=== PATIENT | female | born 2000 | race Hispanic/Latino ===

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

== ENCOUNTER → 2023-09-02 | Outpatient (CLI) | payer MEDICAID | END | disposition home or self-care (01) | LOC: OIH 11:35 | PROVIDERS: ATTEND Internal Medicine | DX: M47.814 Spondylosis without myelopathy or radiculopathy, thoracic region (principal); M54.6 Pain in thoracic spine | CPT/HCPCS: 72070 ==

== ENCOUNTER 2024-07-23 19:01 | Emergency (ER) | payer MEDICAID ==
[~2024-07-23] VITALS: Ht 157.5 cm; Wt 74.8 kg
--- NOTE | 2024-07-23 19:24 | ERN ---
ED Note History of Present Illness Stated Complaint: URINARY RETENTION, N/V, CONSTIPATION Chief Complaint: Multiple Complaints Time Seen by MD: 19:03 Time Seen by Midlevel: 19:03 Dictation: Patient is a 23-year-old female with a history of bipolar, autism, mountain delayed who presents to the emergency department with complaints of a nausea, nonbloody vomiting, constipation, chills, burning urination , generalized abdominal pain onset six days ago. Mother denies any fevers. Allergies: Coded Allergies: amoxicillin (Unverified Allergy, Unknown, 07/23/24) Past Medical History Past Medical History: UTI Additional Past Medical Hx: MR Surgical History: Tonsillectomy History: Not Applicable RN Note Reviewed/Agreed w/PFSH: Yes Review of System Dictation Constitutional: Negative for fever, and weight loss positive for chills Eyes: Negative for injury, pain,redness, and discharge ENT: Negative for injury,pain or swelling Cardiovascular: Negative for chest pain, palpitations, and edema Respiratory: Negative for shortness of breath, cough, and wheezing, Abdomen/GI: Negative for diarrhea. Positive for abdominal pain, nausea, vomiting, constipation Back: Negative for injury and pain : Negative for injury, bleeding and discharge positive for urinary discomfort MS/Extremity: Negative for injury and deformity Skin: Negative for rash, and discoloration Neuro: Negative for headache, weakness, numbness, tingling, and seizure Psych: Negative for suicide ideation, homicidal ideation, and hallucinations Initial Vital Sign VS Vital Signs Date Time Temp Pulse Resp B/P (MAP) Pulse Ox O2 Delivery O2 Flow Rate FiO2 07/23/24 19:03 97.7 90 20 117/79 97 Room Air 07/23/24 20:16 0 21 Physical Exam Dictation Vital Signs reviewed General Appearance: Alert, oriented x 3, no acute distress, well developed, nourished. Head and Face: non-traumatic. Eyes: PERRL, pink conjunctivas, eyelid no trauma, anterior chamber with arcus senilis. Ears: Pinnas intact and no signs of trauma or erythema ear canals clear and no discharge TM no erythema Nose: No discharge, no bleeding. Oropharynx: Mouth normal, tongue pink. pharynx clear,no erythema, tonsils no exudates, no abscesses noted, mucous membrane moist Neck: Supple, non-tender, no thyromegaly, no masses, no JVD, no bruits Breast:Deferred Chest:No tenderness, no crepitus, no paradoxical movement, no retractions Lungs:Clear, well-ventilated, symmetric, no rales, no wheezing, no rhonchi, no stridor, good breath sounds bilaterally Heart: Regular rate, regular rhythm, no murmur, no gallops Vascular: no peripheral edema, Abdomen: Soft, positive bowel sounds, nondistended, no guarding, nontender, no rebound, no masses no hepatomegaly, no splenomegaly, no Malagon's sign, no hernias. Rectal: Deferred Genital: Deferred Neurological: Normal speech, motor function intact, sensory function intact Musculoskeletal: Neck nontender, full range of motion, back nontender, full range of motion, Extremities: nontender, full range of motion Skin: Color pink, dry, no turgor, no rash, no lacerations, no abrasions, no contusions. Lymphatic: Deferred Results (Laboratory/Radiology) Laboratory/Radiology Laboratory Tests Test 07/23/24 19:48 07/23/24 19:54 White Blood Count 9.7 K/uL (4.8-10.8) Red Blood Count 4.43 MIL/uL (4.00-5.50) Hemoglobin 13.3 g/dL (12.0-16.0) Hematocrit 37.1 % (36-48) Mean Corpuscular Volume 83.7 fL (80-100) Mean Corpuscular Hemoglobin 30.0 pg (27.0-33.0) Mean Corpuscular Hemoglobin Concent 35.8 g/dL (32.0-36.0) Red Cell Distribution Width 11.8 % (11.0-15.5) Platelet Count 246 K/uL (130-400) Mean Platelet Volume 9.7 fL (7.5-10.5) Immature Granulocyte % (Auto) 0.4 % (0-1) Neutrophils (%) (Auto) 66.5 % (40.0-77.0) Lymphocytes (%) (Auto) 23.5 % (21.0-51.0) Monocytes (%) (Auto) 8.0 % (3.0-13.0) Eosinophils (%) (Auto) 1.2 % (0.0-8.0) Basophils (%) (Auto) 0.4 % (0.0-5.0) Neutrophils # (Auto) 6.4 K/uL (1.8-7.7) Lymphocytes # (Auto) 2.3 K/uL (1.0-4.8) Monocytes # (Auto) 0.8 K/uL (0.1-1.0) Eosinophils # (Auto) 0.12 K/uL (0.00-0.70) Basophils # (Auto) 0.04 K/uL (0.00-0.20) Absolute Immature Granulocyte (auto 0.04 K/uL (0-1) Nucleated Red Blood Cells 0.0 % (0.0-0.19) Sodium Level 139 mmol/L (136-145) Potassium Level 3.7 mmol/L (3.5-5.1) Chloride Level 98 mmol/L (101-111) L Carbon Dioxide Level 30 mmol/L (21-32) Blood Urea Nitrogen 13 mg/dL (7-18) Creatinine 0.9 mg/dL (0.5-1.0) Glomerular Filtration Rate Calc 93 mL/min (>90) Random Glucose 88 mg/dL (70-105) Total Calcium 9.7 mg/dL (8.5-10.1) Magnesium Level 2.00 mg/dL (1.80-2.40) Total Bilirubin 0.6 mg/dL (0.2-1.0) Direct Bilirubin 0.2 mg/dL (0.0-0.3) Aspartate Amino Transf (AST/SGOT) 141 U/L (10-37) H Alanine Aminotransferase (ALT/SGPT) 236 U/L (12-78) H Alkaline Phosphatase 58 U/L (50-136) Total Protein 8.1 g/dL (6.0-8.3) Albumin 4.2 g/dL (3.5-5.0) Lipase 49 U/L (16-77) Serum Test, Qualitative NEGATIVE (NEGATIVE) Urine Color YELLOW (YELLOW) Urine Appearance CLEAR (CLEAR) Urine pH 5.5 (5.0-8.0) Urine Specific [place] 1.019 (1.001-1.031) Urine Protein 30 mg/dL (NEGATIVE) H Urine Glucose (UA) NEGATIVE mg/dL (NEGATIVE) Urine Ketones 100 mg/dL (NEGATIVE) H Urine Occult Blood NEGATIVE (NEGATIVE) Urine Nitrate NEGATIVE (NEGATIVE) Urine Bilirubin NEGATIVE mg/dL (NEGATIVE) Urine Urobilinogen 4.0 mg/dL (0.2-1.0) H Urine Leukocyte Esterase NEGATIVE Cyndie/uL Urine RBC 0-1 /HPF (0-1) Urine WBC 2-5 /HPF (0-1) H Urine Squamous Epithelial Cells FEW /HPF (0-2) Urine Bacteria RARE /HPF (None Seen) Urine Other Casts 1 /LPF (None Seen) REASON: RUq Abdominal Pain, n,v, ORDERING PHYSICIAN: JUAN C COBOS PROCEDURE: ABD PEL W - CT ABDOMEN/PELVIS W/CONTRAST CT ABDOMEN/PELVIS W/CONTRAST HISTORY: RUq Abdominal Pain, n,v, TECHNIQUE: CT ABDOMEN/PELVIS W/CONTRAST Omnipaque contrast was used. Oral contrast was not given. Coronal and sagittal reformats were obtained. CT was performed with one or more of the following dose reduction techniques: Automated exposure control, adjustment of the mA and/or kV according to the patient's size, or use of the iterative reconstruction technique. Comparison: None. FINDINGS: No pulmonary consolidation or pleural effusion is seen. There is hepatic steatosis. No calcified gallstone is seen. The spleen, pancreas, and adrenal glands are within normal limits. No hydronephrosis. The urinary bladder is partially distended. Reproductive organs are grossly within normal limits for patient's age. Small amount of free pelvic fluid, nonspecific for patient's age. No bowel obstruction is seen. Normal appendix. Visualized aorta is normal in caliber. No acute osseous findings. IMPRESSION: 1. Small amount of free pelvic fluid, nonspecific for patient's age. 2. No bowel obstruction is seen. Normal appendix. REASON: ABD PAIN, ELEVATED LFTS ORDERING PHYSICIAN: JUAN C COBOS RADIATION PROTECTION TECHNICIAN PROCEDURE: ABDRUQLTD - US ABDOMINAL RUQ\LTD US ABDOMINAL RUQ\E\LTD HISTORY: ABD PAIN, ELEVATED LFTS TECHNIQUE: US ABDOMINAL RUQ\E\LTD. FINDINGS: LIVER: Diffuse increased echogenicity of the liver is seen suggestive of hepatic parenchymal disease, such as hepatic steatosis. Vertebral measures 19 cm. GALLBLADDER: No gallstone or wall thickening is seen. CBD: Measures up to 0.3cm. PANCREAS: The visualized pancreas appears within normal limits. The pancreatic was not well seen due to overlying bowel gas. RIGHT KIDNEY: measures 9.9cm in length. No hydronephrosis or calculi. Study is degraded due to patient's large body habitus. IMPRESSION: Hepatomegaly with hepatic steatosis. REASON: constipation ORDERING PHYSICIAN: JUAN C COBOS PROCEDURE: ABD 1VW - ABD 1VW ABD 1VW HISTORY: constipation TECHNIQUE: ABD 1VW. COMPARISON: None. FINDINGS/IMPRESSION: Nonspecific bowel gas pattern is seen. Prominent fecal material in the colon suggesting mild constipation. No definite evidence of free abdominal air. No acute osseous injury is identified. Labs Reviewed?: Yes ED Course ED Course Orders Procedure Category Date Status Time Cbc With Differential LAB 07/23/24 Complete 19:18 Urinalysis Profile LAB 07/23/24 Complete 19:18 0.9%Nacl 1000ml (Ns PHA 07/23/24 Complete 1000ml) 19:30 Ondansetron 4mg Inj PHA 07/23/24 Complete (Zofran 4mg Inj) 19:30 Lipase LAB 07/23/24 Complete 19:18 Basic Metabolic Panel LAB 07/23/24 Complete 19:18 Magnesium LAB 07/23/24 Complete 19:18 Hepatic Function Panel LAB 07/23/24 Complete 19:18 Testing, LAB 07/23/24 Complete Serum Hcg 19:18 Abd 1vw RAD 07/23/24 Resulted 19:18 Acetaminophen 500mg PHA 07/23/24 Complete Tab (Tylenol 500mg T 19:30 Bladder Scan CPOE 07/23/24 Transmitted 19:18 Us Abdominal Ruq\Ltd US 07/23/24 Resulted 20:25 Ondansetron 4mg Inj PHA 07/23/24 Complete (Zofran 4mg Inj) 21:30 Ct Abdomen/Pelvis CT 07/23/24 Resulted W/Contrast 21:15 Morphine 4mg Syg PHA 07/23/24 Complete (Morphine 4mg Syg) 21:30 Iohexol (Omnipaque) PHA 07/23/24 Complete 21:29 Iohexol (Omnipaque) PHA 07/23/24 Complete 21:42 Current Medications Medications (Trade) Dose Ordered Sig/Rosie Route PRN Reason Start Time Stop Time Status Last Admin Dose Admin Acetaminophen (TYLenol 500MG TAB) 1,000 mg ONCE ONCE PO 07/23/24 19:30 07/23/24 19:31 DC 07/23/24 20:05 Iohexol (Omnipaque) 50 ml STK-MED ONCE IV 07/23/24 21:29 07/23/24 21:29 DC Iohexol (Omnipaque) 50 ml STK-MED ONCE IV 07/23/24 21:42 07/23/24 21:42 DC Morphine Sulfate (morPHINE 4MG SYG) 4 mg ONCE ONCE IVP 07/23/24 21:30 07/23/24 21:31 DC 07/23/24 21:33 Ondansetron HCl (zoFRAN 4MG INJ) 4 mg ONCE ONCE IVP 07/23/24 19:30 07/23/24 19:31 DC 07/23/24 20:04 Ondansetron HCl (zoFRAN 4MG INJ) 4 mg ONCE ONCE IVP 07/23/24 21:30 07/23/24 21:31 DC 07/23/24 21:33 Sodium Chloride 1,000 ml @ 0 mls/hr ONCE ONCE IV 07/23/24 19:30 07/23/24 19:31 DC 07/23/24 20:04 Vital Signs Date Time Temp Pulse Resp B/P (MAP) Pulse Ox O2 Delivery O2 Flow Rate FiO2 07/23/24 20:16 98.8 94 18 125/80 98 Room Air* 0 21 07/23/24 19:03 97.7 90 20 117/79 97 Room Air Medical Decision Making MDM Patient is a 23-year-old female with a history of bipolar, autism, mountain delayed who presents to the emergency department with complaints of a nausea, nonbloody vomiting, constipation, chills, burning urination , generalized abdominal pain onset six days ago. Mother denies any fevers CBC showed no leukocytosis, no anemia, chemistry showed no electrolyte imbalance, normal renal function, elevated liver enzymes. Ultrasound was obtained did not show any gallstones but hepatic steatosis. Urinalysis unremar kable. CT abdomen showed no acute findings. Small amount of free fluid in pelvis. Labs and imaging discussed with the patient and patient's family who agreed follow up with primary doctor. Patient has an appointment on Friday. Vital signs stable during ER. Case discussed with Dr. Sanchez who agrees the patient can be discharged Differential diagnosis: Dehydration, UTI, pyelonephritis, constipation, gastroenteritis Need for hospitalization: Patient does not meet criteria for hospitalization. There are no social concerns with this patient. DX & DISP Disposition: Discharge Departure Impression: Primary Impression: Constipation Additional Impressions: Nausea and vomiting, Transaminitis, Abdominal pain Condition: Stable Scripts Lactulose (Lactulose) 10 Gram/15 Ml Solution 30 ML PO DAILY for constipation, #900 ML 0 Refills Prov: COBOS,JUAN C ERNST 07/23/24 Ondansetron (Ondansetron Odt) 4 Mg Tab.rapdis 4 MG PO Q6HPRN PRN for nausea, #16 TAB 0 Refills Prov: DANISH COBOSCHRISTINE ERNST 07/23/24 Additional Instructions: Please follow up with primary doctor in 1-2 days. If symptoms worsen please return to ER. Continue staying hydration at home. Take medications as prescribed. FOLLOW-UP WITH PRIMARY CARE PROVIDER IN 1 TO 2 DAYS. TAKE MEDICATIONS DIRECTED HERE IN THE EMERGENCY ROOM. OKAY TO CONTINUE HOME MEDICATIONS UNLESS OTHERWISE DISCUSSED DURING YOUR VISIT IN THE EMERGENCY ROOM TODAY. RETURN TO YOUR NEAREST EMERGENCY ROOM IF SYMPTOMS WORSEN OR IF THERE IS NO IMPROVEMENT. CALL 911 IF YOU NEED IMMEDIATE ASSISTANCE. TAKE TYLENOL OR MOTRIN [id number] NEEDED AND IF NO CONTRAINDICATIONS ARE PRESENT. INCREASE ORAL HYDRATION. A WOUND CULTURE OR URINE CULTURE WAS ORDERED HERE IN THE EM ERGENCY ROOM DEPARTMENT PLEASE FOLLOW-UP WITH PRIMARY CARE PROVIDER AND ADVISE THEM TO GET REPEAT PORTS FROM OUR FACILITY. IF YOU HAD ANY BARTOLO WRAP/SPLINTS THAT WERE APPLIED HERE, PLEASE DO NOT REMOVE THEM UNTIL YOU SEE YOUR PRIMARY CARE OR SPECIALTY. Referrals: SELF,REFERRAL (PCP) Time of Disposition: 22:19 I have reviewed the case, and I agree with, Diagnosis and Plan DANISH COBOSCHRISTINE ERNST Jul 23, 2024 19:24
[2024-07-23 19:56] LABS: BASOPHILS # (AUTO) 0.04 K/uL (0.00-0.20); BASOPHILS % (AUTO) 0.4 % (0.0-5.0); EOSINOPHILS # (AUTO) 0.12 K/uL (0.00-0.70); EOSINOPHILS % (AUTO) 1.2 % (0.0-8.0); HEMATOCRIT 37.1 % (36-48); IMMATURE GRANULOCYTE ABSOLUTE 0.04 K/uL (0-1); LYMPHOCYTES # (AUTO) 2.3 K/uL (1.0-4.8); LYMPHOCYTES % (AUTO) 23.5 % (21.0-51.0); MEAN CORPUSCULAR HGB CONC 35.8 g/dL (32.0-36.0); MEAN CORPUSCULAR VOLUME 83.7 fL (80-100); MONOCYTES # (AUTO) 0.8 K/uL (0.1-1.0); NEUTROPHILS # (AUTO) 6.4 K/uL (1.8-7.7); NEUTROPHILS % (AUTO) 66.5 % (40.0-77.0); PLATELET COUNT (AUTO) 246 K/uL (130-400); RED BLOOD CELL COUNT(AUTO) 4.43 MIL/uL (4.00-5.50); RED CELL DISTRIBUTION WIDTH 11.8 % (11.0-15.5); WHITE BLOOD COUNT (AUTO) 9.7 K/uL (4.8-10.8)
--- NOTE | 2024-07-23 20:00 | NUR ---
BLADDER SCANNER READING 0CC, PATIENT HAD PREVIOSLY VOIDED
[2024-07-23] MEDS: ondanSETRON 4MG INJ IVP ONE ×2 (20:04→21:33)
[2024-07-23] MEDS: 0.9%NACL 1000ML 1,000 ML IV ONE (20:04)
[2024-07-23] MEDS: acetaMINOPHEN 500 MG TABLET PO ONE (20:05)
[2024-07-23 20:10] LABS: CREATININE 0.9 mg/dL (0.5-1.0); POTASSIUM 3.7 mmol/L (3.5-5.1)
[2024-07-23 20:13] LABS: ALBUMIN 4.2 g/dL (3.5-5.0); BILIRUBIN,DIRECT 0.2 mg/dL (0.0-0.3); BILIRUBIN,TOTAL 0.6 mg/dL (0.2-1.0); TOTAL PROTEIN, SERUM 8.1 g/dL (6.0-8.3)
[2024-07-23 20:17] LABS: APPEARANCE,URINE CLEAR (CLEAR); BILIRUBIN,URINE NEGATIVE (NEGATIVE); COLOR,URINE YELLOW (YELLOW); GLUCOSE, URINE (UA) NEGATIVE (NEGATIVE); KETONES,URINE 100 mg/dL (NEGATIVE); LEUKOCYTE ESTERASE ,URINE NEGATIVE Leu/uL (NEGATIVE); NITRATE,URINE NEGATIVE (NEGATIVE); OCCULT BLOOD,URINE NEGATIVE (NEGATIVE); PH,URINE 5.5 (5.0-8.0); PROTEIN,URINE 30 mg/dL (NEGATIVE)
[2024-07-23 20:19] LABS: ADD UA MICROSCOPIC YES
[2024-07-23 20:24] LABS: BACTERIA,URINE RARE /HPF (None Seen); MUCUS,URINE RARE LPF (None Seen); OTHER CASTS, URINE 1 /LPF (None Seen); RBC,URINE 0-1 /HPF (0-1); SQUAMOUS EPITHELIAL CELL,UR FEW /HPF (0-2)
--- NOTE | 2024-07-23 21:17 | HMCIMG ---
ABD 1VW HISTORY: constipation TECHNIQUE: ABD 1VW. COMPARISON: None. FINDINGS/IMPRESSION: Nonspecific bowel gas pattern is seen. Prominent fecal material in the colon suggesting mild constipation. No definite evidence of free abdominal air. No acute osseous injury is identified.
--- NOTE | 2024-07-23 21:18 | HMCIMG ---
US ABDOMINAL RUQ\E\LTD HISTORY: ABD PAIN, ELEVATED LFTS TECHNIQUE: US ABDOMINAL RUQ\E\LTD. FINDINGS: LIVER: Diffuse increased echogenicity of the liver is seen suggestive of hepatic parenchymal disease, such as hepatic steatosis. Vertebral measures 19 cm. GALLBLADDER: No gallstone or wall thickening is seen. CBD: Measures up to 0.3cm. PANCREAS: The visualized pancreas appears within normal limits. The pancreatic was not well seen due to overlying bowel gas. RIGHT KIDNEY: measures 9.9cm in length. No hydronephrosis or calculi. Study is degraded due to patient's large body habitus. IMPRESSION: Hepatomegaly with hepatic steatosis.
[2024-07-23] MEDS ORDERED: IOHEXOL-350 50ML VIAL IV ONE ×2 (21:29→21:42)
[2024-07-23] MEDS: morPHINE 4 MG SYG IVP ONE (21:33)
--- NOTE | 2024-07-23 21:59 | HMCIMG ---
CT ABDOMEN/PELVIS W/CONTRAST HISTORY: RUq Abdominal Pain, n,v, TECHNIQUE: CT ABDOMEN/PELVIS W/CONTRAST Omnipaque contrast was used. Oral contrast was not given. Coronal and sagittal reformats were obtained. CT was performed with one or more of the following dose reduction techniques: Automated exposure control, adjustment of the mA and/or kV according to the patient's size, or use of the iterative reconstruction technique. Comparison: None. FINDINGS: No pulmonary consolidation or pleural effusion is seen. There is hepatic steatosis. No calcified gallstone is seen. The spleen, pancreas, and adrenal glands are within normal limits. No hydronephrosis. The urinary bladder is partially distended. Reproductive organs are grossly within normal limits for patient's age. Small amount of free pelvic fluid, nonspecific for patient's age. No bowel obstruction is seen. Normal appendix. Visualized aorta is normal in caliber. No acute osseous findings. IMPRESSION: 1. Small amount of free pelvic fluid, nonspecific for patient's age. 2. No bowel obstruction is seen. Normal appendix.
[2024-07-23] MEDS ORDERED: ONDA-243 PO (22:20)
[2024-07-23] MEDS ORDERED: LACT10SO85 PO (22:20)
[2024-07-23 22:57] VITALS: BP 118/78; PULSE 84; RESP 18; TEMP 98.7; O2SAT 98
[2024-07-23] MEDS: LACTULOSE 20 GM/30 ML UDCUP PO ONE (22:57)
== END 2024-07-23 22:59 | disposition home or self-care (01) ==
LOC: EDH 19:01
DX: K59.00 Constipation, unspecified (principal); R11.2 Nausea with vomiting, unspecified; R74.01 Elevation of levels of liver transaminase levels; Z87.440 Personal history of urinary (tract) infections; Z88.0 Allergy status to penicillin; Z90.89 Acquired absence of other organs
CPT/HCPCS: 99285; 74177; 96374; 76705; 96361; 96375; 80076; 83735; 80048; 84703; 83690; 85025; 81001; 36415; 74018; 96376; J7030; J2405 ×2; J2270; Q9967 ×2

== ENCOUNTER → 2025-04-18 | Outpatient (CLI) | payer MEDICAID ==
[~2025-04-18] MED LIST: LACT10SO85 PO; ONDA-243 PO
--- NOTE | 2025-04-19 03:23 | HMCIMG ---
EXAM: CR Cervical spine, 3 views. CLINICAL HISTORY: Pain. COMPARISON: None provided. FINDINGS: Mild straightening of the expected cervical lordosis with subtle levocurvature reflects paraspinal muscle spasm. Normal intervertebral disc spaces. Normal vertebral body heights. No acute fracture. The prevertebral soft tissues are within normal limits. The included lungs are clear. IMPRESSION: No acute bony abnormality is evident. Mild straightening of the expected cervical lordosis with subtle levocurvature reflects paraspinal muscle spasm. [facility]
== END | disposition home or self-care (01) ==
LOC: RAH 15:48
PROVIDERS: ATTEND Internal Medicine
DX: M43.8X2 Other specified deforming dorsopathies, cervical region (principal); M54.12 Radiculopathy, cervical region; M40.40 Postural lordosis, site unspecified; M62.838 Other muscle spasm
CPT/HCPCS: 72040